=== PATIENT | male | born 1980 | race Caucasian/White ===

== ENCOUNTER 2018-03-13 04:28 | Emergency (ER) | payer SELFPAY ==
[~2018-03-13] VITALS: Ht 180.3 cm; Wt 129.5 kg
[2018-03-13 04:32] VITALS: Ht 180.3 cm; Wt 129.5 kg
[2018-03-13] MEDS ORDERED: METOPROLOL TART50 MG PO (04:33)
[2018-03-13 05:26] LABS: APPEARANCE CLEAR (CLEAR); BILIRUBIN NEGATIVE (NEGATIVE); COLOR YELLOW (YELLOW); GLUCOSE NEGATIVE (NEGATIVE); KETONE NEGATIVE (NEGATIVE); NITRITE NEGATIVE (NEGATIVE); PROTEIN NEGATIVE (NEGATIVE); UROBILINOGEN NORMAL (NORMAL)
[2018-03-13 05:48] LABS: BASOPHILS 0.5 % (0-2); EOSINOPHILS 3.6 % (0-7); HEMATOCRIT 40.2 % (42.0-54.0); HEMOGLOBIN 13.9 g/dL (13.5-17.5); IMMATURE GRANULOCYTES 0.4 % (0-5); LYMPHOCYTES 31.4 % (15-50); MCH 29.3 pg (26.0-34.0); MCHC 34.6 g/dL (31.0-37.0); MCV 84.8 fL (80.0-100.0); MEAN PLATELET VOLUME 10.5 fL (7.4-10.4); MONOCYTES 9.7 % (2-11); NEUTROPHILS 54.4 % (40-80); RBC 4.74 10x6/uL (4.20-6.10); RDW 13.5 % (11.5-14.5); WBC 9.3 10x3/uL (4.8-10.8)
[2018-03-13 05:51] LABS: PLATELET COUNT 207 10x3/uL (130-400)
[2018-03-13 06:09] LABS: KETONE - SERUM NEGATIVE (NEGATIVE)
[2018-03-13 06:16] LABS: ALKALINE PHOSPHATASE 93 U/L (46-116); ALT (SGPT) 27 U/L (10-68); BILIRUBIN - TOTAL 0.21 mg/dL (0.2-1.3); CALCIUM 8.1 mg/dL (8.5-10.1); CARBON DIOXIDE 23.4 mmol/L (21.0-32.0); CHLORIDE - SERUM 102 mmol/L (98-107); CREATININE - SERUM 0.9 mg/dL (0.6-1.3); MAGNESIUM - SERUM 1.8 mg/dL (1.8-2.4); POTASSIUM - SERUM 3.7 mmol/L (3.5-5.1); PROTEIN - SERUM 6.4 g/dL (6.4-8.2); SODIUM 137 mmol/L (136-145); THYROID STIMULATING HORMONE 2.57 uIU/mL (0.36-3.74); UREA NITROGEN 19 mg/dL (7-18); eGFR NON AFRICAN AMERICAN > 90 mL/min (90-120)
[2018-03-13 06:20] LABS: CALC OSMOLALITY 281 mosm/kg (275-300); GLUCOSE 204 mg/dL (74-106)
[2018-03-13] MEDS ORDERED: GLUCOPHAGE500 MG PO (06:28)
[2018-03-13 07:19] VITALS: BP 132/68
== END 2018-03-13 07:20 | disposition home or self-care (01) ==
LOC: D.ER 04:28
PROVIDERS: Emergency Medicine
DX: E11.9 Type 2 diabetes mellitus without complications (principal); R42 Dizziness and giddiness; I10 Essential (primary) hypertension; F17.200 Nicotine dependence, unspecified, uncomplicated

== ENCOUNTER 2019-11-03 14:06 | Emergency (ER) | payer SELFPAY ==
[~2019-11-03] VITALS: Ht 180.3 cm; Wt 118.2 kg
[~2019-11-03 14:06] MED LIST: GLUCOPHAGE500 MG PO; METOPROLOL TART50 MG PO
[2019-11-03 14:27] VITALS: BP 148/93; Ht 180.3 cm; Wt 118.2 kg
[2019-11-03] MEDS ORDERED: BACLOFEN20 M1 PO (16:02)
[2019-11-03] MEDS ORDERED: NAPROSYN500 MG PO (16:02)
== END 2019-11-03 17:39 | disposition home or self-care (01) ==
LOC: D.ER 14:06
DX: S09.90XA Unspecified injury of head, initial encounter (principal); R51 Headache; W22.8XXA Striking against or struck by other objects, initial encounter; Y93.9 Activity, unspecified; Y92.9 Unspecified place or not applicable; E11.9 Type 2 diabetes mellitus without complications; I10 Essential (primary) hypertension; J45.909 Unspecified asthma, uncomplicated; Z79.84 Long term (current) use of oral hypoglycemic drugs